=== PATIENT | female | born 1985 | race Hispanic/Latino ===

== ENCOUNTER 2024-12-16 11:43 | Emergency (ER) | payer MEDICAID ==
[~2024-12-16] VITALS: Ht 160 cm; Wt 70.3 kg
[2024-12-16] VITALS (9 sets, daily range): BP systolic 122–140; BP diastolic 79–86
[2024-12-16] MEDS ORDERED: methylPREDNISolone SODIUM SUCC 125 MG/2 ML SDV IV ONE (11:50)
[2024-12-16] MEDS ORDERED: EPINEPHrine HCL 1 MG/ML AMP IM ONE (11:50)
[2024-12-16] MEDS ORDERED: FAMOTIDINE 10MG/ML 2ML SDV IV ONE (11:55)
[2024-12-16] MEDS ORDERED: DiphenhydrAMINE HCL 50 MG/ML SDV IV ONE (11:55)
[2024-12-16] MEDS ORDERED: EPIPEN 2-P0.3 MG/0.3 IM (13:20)
[2024-12-16] MEDS ORDERED: PREDNISONE50 MG PO (13:20)
== END 2024-12-16 13:56 | disposition home or self-care (01) ==
LOC: ED 11:43
DX: L50.0 Allergic urticaria (principal)
CPT/HCPCS: J1200